=== PATIENT | male | born 1980 | race Asian ===

== ENCOUNTER 2019-09-21 08:48 | Emergency (ER) | payer SELFPAY ==
[2019-09-21 08:54] VITALS: BP 117/63
[2019-09-21] MEDS ORDERED: AZITHROMYCIN 1 GM ORAL PWDR PACKET PO ONE (09:39)
[2019-09-21] MEDS ORDERED: LIDOCAINE-MPF (1%) 10 MG/1 ML VIAL 5 ML INFILTRATI ONE (09:39)
--- NOTE | 2019-09-21 09:43 | Emergency Department Report ---
HPI - General Chief Complaint: Urogenital-Male Time Seen by Provider: 09/21/19 09:22 - HPI HPI: Room 39 The patient is 39-year-old male presenting with chief complaint of penile discharge. Patient states he had oral sex performed on him 2 days ago. The patient states when he awakened this morning his urethra. Clogged and noticed some clear/clotting penile discharge. Patient denies hematuria but states he had a tingling sensation when he urinated. Patient denies history of fever ED Past Medical Hx - Past Medical History Previous Medical History?: No - Surgical History Past Surgical History?: No - Family History Family history: no significant - Social History Smoking Status: Current Every Day Smoker Substance Use Type: None (denies illicit drug use), Alcohol (occasional) - Medications Home Medications: Home Medications Medication Instructions Recorded Confirmed Last Taken Type Ciprofloxacin HCl [Ciprofloxacin 500 mg PO Q12HR #14 tab 09/21/19 Unknown Rx TAB] ED Review of Systems ROS: Stated complaint: PAINFUL URINATION Other details as noted in HPI Constitutional: denies: fever Eyes: denies: eye pain Genitourinary: dysuria. denies: hematuria Physical Exam - Physical Exam Vital Signs: Vital Signs 09/21/19 08:53 Temperature 98.2 F Pulse Rate 69 Respiratory 16 Rate Blood Pressure 117/63 O2 Sat by Pulse 98 Oximetry Physical Exam: GENERAL: The patient is well-developed well-nourished male sitting in chair not appearing to be in acute distress. [] HEENT: Normocephalic. Atraumatic. Extraocular motions are intact. NECK: Trachea midline CHEST/LUNGS: There is no respiratory distress noted. SKIN: There is no diaphoresis. NEURO: The patient is awake, alert, and oriented. The patient is cooperative. The patient has normal speech MUSCULOSKELETAL: There is no evidence of acute injury. ED Course Vital Signs 09/21/19 08:53 Temperature 98.2 F Pulse Rate 69 Respiratory 16 Rate Blood Pressure 117/63 O2 Sat by Pulse 98 Oximetry ED Medical Decision Making - Lab Data Laboratory Tests 09/21/19 09:55 Urine Color Yellow Urine Turbidity Clear Urine pH 6.0 Ur Specific [place] 1.016 Urine Protein <15 mg/dl Urine Glucose (UA) Neg Urine Ketones Neg Urine Blood Neg Urine Nitrite Neg Urine Bilirubin Neg Urine Urobilinogen < 2.0 Ur Leukocyte Esterase Tr Urine WBC (Auto) 11.0 H Urine RBC (Auto) 2.0 - Differential Diagnosis urethritis, UTI Critical care attestation.: If time is entered above; I have spent that time in minutes in the direct care of this critically ill patient, excluding procedure time. ED Disposition Clinical Impression: Urethritis, UTI (urinary tract infection) Disposition: - TO HOME OR SELFCARE Is pt being admited?: No Does the pt Need Aspirin: No Condition: Stable Instructions: Nonspecific Urethritis in Men (ED) Prescriptions: Ciprofloxacin HCl [Ciprofloxacin TAB] 500 mg PO Q12HR #14 tab Forms: STI Treatment and Prevention Time of Disposition: 11:20
[2019-09-21 10:50] LABS: Bilirubin,Urine NEG (Negative); Blood,Urine NEG (Negative); Color,Urine Yellow (Yellow); Protein,Urine <15 mg/dL mg/dL (Negative); Urobilinogen,Urine < 2.0 mg/dL (<2.0)
== END 2019-09-21 11:30 | disposition home or self-care (01) ==
LOC: ED 08:48
DX: N34.2 Other urethritis (principal); N39.0 Urinary tract infection, site not specified; F17.200 Nicotine dependence, unspecified, uncomplicated
CPT/HCPCS: 81001; 87086; 87591; 96372; 99283; J0696